=== PATIENT | male | born 1960 | race Caucasian/White ===

== ENCOUNTER → 2022-01-20 | Outpatient (CLI) | payer MEDICARE, OTHER ==
--- NOTE | 2022-01-20 13:07 | XR ---
EXAMINATION TYPE: XR skull limited DATE OF EXAM: 01/20/2022 COMPARISON: NONE HISTORY: 61-year-old male Z1 8.10, retained metal fragments. TECHNIQUE: 2 views FINDINGS: Dental amalgam is present. No retained metal otherwise seen within the orbits or along the calvarium, or the region of the temporal bones/mastoid processes. The left mastoid process is smaller, likely p ostsurgical. IMPRESSION: Dental amalgam but no additional retained metal identified along the skull.
--- NOTE | 2022-01-20 14:39 | MR ---
EXAMINATION TYPE: MR knee LT wo con DATE OF EXAM: 01/20/2022 COMPARISON: Outside left knee x-ray the eighth 05/09/2021 HISTORY: Left outer knee pain, painful kneecap, and locking TECHNIQUE: Multiplanar, multisequence imaging of the left knee is performed without IV contrast. FINDINGS: MEDIAL MENISCUS: Anterior and posterior horns are intact without tear. LATERAL MENISCUS: Anterior and posterior horns are intact without tear. CRUCIATE LIGAMENTS: The anterior and posterior cruciate ligaments are intact and unremarkable. COLLATERAL LIGAMENTS: The medial collateral ligament and lateral collateral ligament complex are inta ct and unremarkable. EXTENSOR MECHANISM: Visualized quadriceps and patellar tendons are intact. EFFUSION: No significant suprapatellar joint effusion. POPLITEAL CYST: No popliteal/pizarro cyst. TRICOMPARTMENT SPACES: Moderate narrowing patellofemoral compartment. No significant spurring is seen . CARTILAGE: Focal chondromalacia patella with cartilaginous loss along posterior patellar pole. Full-t hickness cleft loss sagittal image 16 is noted. BONE MARROW SIGNAL: Focus of heterogeneous increased T2 signal posterior patellar pole axial image 25 with areas of heterogeneous increased signal throughout the remainder of the patella. OTHER: No additional significant abnormality is appreciated. IMPRESSION: Patellofemoral joint arthropathy as detailed above. No meniscal or ligamentous tear is se en.
== END | disposition home or self-care (01) ==
LOC: RADMRIMAIN 12:02
PROVIDERS: ATTEND Orthopaedic Surgery
DX: Z18.10 Retained metal fragments, unspecified (principal); M22.42 Chondromalacia patellae, left knee
CPT/HCPCS: 70250

== ENCOUNTER → 2022-04-13 | Outpatient (CLI) | payer OTHER ==
[2022-04-13 18:17] LABS: Basophils # (A) 0.03 X 10*3/uL (0.00-0.10); Basophils % (A) 0.3 %; Eosinophils # (A) 0.07 X 10*3/uL (0.04-0.35); Eosinophils % (A) 0.7 %; HCT 43.7 % (39.6-50.0); HGB 14.7 g/dL (13.0-17.0); Immature Grans, Automated 0.4 %; Lymphocytes # (A) 2.85 X 10*3/uL (0.90-5.00); Lymphocytes % (A) 28.4 %; MCH 30.9 pg (27.0-32.0); MCHC 33.6 g/dL (32.0-37.0); MCV 91.8 fL (80.0-97.0); Monocytes # (A) 0.68 X 10*3/uL (0.20-1.00); Monocytes % (A) 6.8 %; NRBC Per 100 WBC 0 /100 WBCS (0.0-0.0); Neutrophils # (A) 6.38 X 10*3/uL (1.80-7.70); Neutrophils % (A) 63.4 %; Platelet Count 282 X 10*3/uL (140-440); RBC 4.76 X 10*6/uL (4.40-5.60); RDW 12.3 % (11.5-14.5); WBC 10.05 X 10*3/uL (4.50-10.00)
[2022-04-13 18:24] LABS: Carbon Dioxide 27.5 mmol/L (20.0-27.5); Potassium 4.6 mmol/L (3.5-5.5)
== END | disposition home or self-care (01) ==
LOC: LABPAT 11:50
PROVIDERS: ATTEND Orthopaedic Surgery
DX: Z01.818 Encounter for other preprocedural examination (principal); M23.92 Unspecified internal derangement of left knee
CPT/HCPCS: 80051; 85025; 93005

== ENCOUNTER 2022-04-14 10:56 | Day surgery (SDC) | payer OTHER ==
--- NOTE | 2022-04-14 03:58 | HP ---
HISTORY AND PHYSICAL DATE OF SURGERY: 04/14/2022. HISTORY OF PRESENT ILLNESS: Radames Pozo is a 61-year-old gentleman seen with progressive left knee pain. We discussed options. He elected to proceed with left knee arthroscopy. Consent was obtained. PAST MEDICAL HISTORY: Hyperlipidemia. PAST SURGICAL HISTORY: Foot surgery, mastoid surgery. MEDICATIONS: Daily medication is atorvastatin. ALLERGIES: Sulfa. SOCIAL HISTORY: Denies current tobacco use. PHYSICAL EVALUATION OF THE LEFT KNEE: Range of motion 0 to 130. Mild effusion. Tenderness, medial joint line. Positive medial Jaquan's. Patellofemoral compression. Distal neurovascular exam is intact. RADIOGRAPHS: Radiographs of his left knee revealed mild osteoarthritis. MRI of left knee revealed patellofemoral osteoarthritis. IMPRESSION: 1. Internal derangement of left knee with osteochondral tear. 2. Hyperlipidemia. PLAN: Left knee arthroscopy with chondroplasty and debridement. MMODL / IJN: [id number] /
[~2022-04-14 10:56] MED LIST: DEXAMETHASONE SOD PHOSPHATE 4 MG/ML 1 ML VIAL IV ONE; HYDROmorphone 0.5 MG/0.5 ML SYRINGE IVP PRN; LACTATED RINGERS 1,000 ML IV SCH; LIDOCAINE 1% (10MG/ML) FOR IV START INTRADERMA PRN; MIDAZOLAM 2 MG/2 ML VIAL IV PRN; ONDANSETRON 4 MG/2 ML VIAL IVP ONE
[2022-04-14] MEDS ORDERED: ONDANSETRON 4 MG/2 ML VIAL ONE (12:08)
[2022-04-14] MEDS ORDERED: ONDANSETRON 4 MG/2 ML VIAL IVP ONE (12:16)
[2022-04-14] MEDS ORDERED: DEXAMETHASONE SOD PHOSPHATE 4 MG/ML 1 ML VIAL IVP ONE (12:16)
[2022-04-14] MEDS ORDERED: BUPIVACAINE (PF) 0.25% 30 ML VIAL SQ ONE (13:16)
[2022-04-14] MEDS ORDERED: MIDAZOLAM 2 MG/2 ML VIAL ONE (13:17)
[2022-04-14] MEDS ORDERED: LIDOCAINE 2% INJ 20 MG/ML (2 ML VIAL) ONE (13:17)
[2022-04-14] MEDS ORDERED: HYDROmorphone (PF) 1 MG/ML ONE (13:17)
[2022-04-14] MEDS ORDERED: fentaNYL (PF) 50 MCG/ML 2 ML AMP ONE (13:17)
[2022-04-14] MEDS ORDERED: PROPOFOL 10 MG/ML 20 ML VIAL IV ONE (13:17)
[2022-04-14] MEDS ORDERED: LACTATED RINGERS 1,000 ML IV ONE (13:47)
[2022-04-14 15:02] VITALS: RESP 18
[2022-04-14 15:25] VITALS: BP 118/73; PULSE 71
--- NOTE | 2022-04-14 21:33 | OP ---
OPERATIVE REPORT PREOPERATIVE DIAGNOSIS: Internal derangement of left knee. POSTOPERATIVE DIAGNOSES: 1. Tear medial and lateral meniscus, right knee. 2. Grade 3 chondromalacia, patella, left knee. 3. Reactive synovitis of medial, lateral, and suprapatellar compartments, left knee. PROCEDURES: 1. Arthroscopic partial medial and lateral meniscectomy, left knee. 2. Arthroscopic chondroplasty, patella, left knee. 3. Arthroscopic partial synovectomy, medial, lateral, and suprapatellar compartments, left knee. ANESTHESIA: General. COMPLICATIONS: None. BLOOD LOSS: 7 mL. INDICATIONS FOR PROCEDURE: Radames Pozo is a 61-year-old gentleman seen with progressive left knee pain. We discussed options. He elected to proceed with arthroscopy. Consent was obtained. The patient was taken to the operative suite. He underwent general anesthetic by the Department of Anesthesia. He received preoperative IV antibiotics. The left lower extremity was placed in well-padded leg landa. Left lower extremity prepped and draped in the normal sterile orthopedic fashion. Lateral parapatellar incision was made. Trocar was inserted. Arthroscopy was initiated. Suprapatellar compartment revealed diffuse reactive synovitis. The patellofemoral joint appeared to articulate congruity with grade 3 chondral changes of the patella with osteochondral tears present. The scope was guided to the medial gutter. No the medial compartment. Medial parapatellar incision was made. Probe was inserted. Radial tear of posterior medial meniscus, thick reactive synovitis anteriorly. No significant chondromalacia. I performed a partial medial meniscectomy, getting down to a stable meniscal tissue. I performed a partial synovectomy. The residual meniscus was probed and found to be stable. There was good decompression of synovitis. Scope probe got into intercondylar notch, ACL identified and probed, stable. Scope got into lateral compartment. Lateral meniscus probed. Lateral meniscus revealed a radial tear in the posterior horn. There was thick reactive synovitis anteriorly. No significant chondromalacia was present. I performed a partial lateral meniscectomy, getting down to a stable meniscal tissue of the lateral meniscal tear, performed a partial synovectomy. The residual meniscus was probed and found to be stable. There was good resection of the tear. There was good decompression with synovitis. Scope probe guided into suprapatellar compartment. I introduced the motor shaver and debrided off some piecemeal fragments of meniscus I encountered. I performed a partial synovectomy. This shaver was removed. I now reintroduced the shaver and performed a chondroplasty of patella, getting down to stable osteochondral tissue. The shaver was again removed. The residual osteochondral surface of the patella appeared stable. There was good decompression with synovitis. I took 1 more look around the entire knee. No residual debris. Instruments now removed from the knee. The portal sites were approximated with Steri-Strips. The joint was infiltrated with 0.25% plain Marcaine, totaling 20 mL. Sterile dressings were applied, followed by TRIXIE peguero. The patient was awakened and transferred to bed in recovery in stable condition. MMODL / IJN: [id number] /
== END 2022-04-14 15:25 | disposition home or self-care (01) ==
LOC: OR 10:56
PROVIDERS: ATTEND Orthopaedic Surgery
DX: M23.301 Other meniscus derangements, unspecified lateral meniscus, left knee (principal); M23.304 Other meniscus derangements, unspecified medial meniscus, left knee; M17.12 Unilateral primary osteoarthritis, left knee; M22.42 Chondromalacia patellae, left knee; M65.862 Other synovitis and tenosynovitis, left lower leg; M25.562 Pain in left knee; E78.5 Hyperlipidemia, unspecified; M25.469 Effusion, unspecified knee; M54.9 Dorsalgia, unspecified; Z88.2 Allergy status to sulfonamides; Z86.69 Personal history of other diseases of the nervous system and sense organs; Z79.899 Other long term (current) drug therapy; Z98.890 Other specified postprocedural states
CPT/HCPCS: 29880; J2250; J1100; J0690; J2405; J3010; J1170 ×2; J2704; J2001

== ENCOUNTER → 2023-12-04 | Outpatient (CLI) | payer OTHER ==
--- NOTE | 2023-12-04 22:40 | MR ---
EXAMINATION TYPE: MR knee LT wo con DATE OF EXAM: 12/04/2023 COMPARISON: MRI left knee January 20, 2022. Outside left knee x-ray November 14, 2023 HISTORY: Left knee pain, locking, and swelling for years. History of remote injury. TECHNIQUE: Multiplanar, multisequence images of the knee is performed without IV contrast. FINDINGS: MEDIAL MENISCUS: Horizontal and irregular increased signal in the medial meniscus is more prominent f rom prior involving posterior horn extending towards central body. No definitive extension to articul ar surface. LATERAL MENISCUS: Anterior and posterior horns are intact without tear. CRUCIATE LIGAMENTS: The anterior and posterior cruciate ligaments are intact and unremarkable. COLLATERAL LIGAMENTS: The medial collateral ligament and lateral collateral ligament complex are inta ct. Fluid signal surrounds the medial collateral ligament. EXTENSOR MECHANISM: Visualized quadriceps and patellar tendons are intact. EFFUSION: Small to borderline moderate size suprapatellar joint effusion larger versus prior. POPLITEAL CYST: No popliteal/pizarro cyst. TRICOMPARTMENT SPACES: Moderate narrowing patellofemoral compartment redemonstrated. No significant s purring is seen. CARTILAGE: Chondromalacia patella with cartilaginous loss and posterior patellar pole including areas of full-thickness loss redemonstrated BONE MARROW SIGNAL: More prominent increased T2 signal throughout the patella. More prominent increas ed T2 signal involving the posterior central tibial plateau extending into the metaphysis. No corresp onding abnormality on x-ray. OTHER: No additional significant abnormality is appreciated. IMPRESSION: 1. New significant at least intrasubstance tear posterior horn of medial meniscus extending toward ce ntral body. 2. Mild MCL sprain injury. 3. Stable at least moderate patellofemoral joint arthropathy. 4. Increasing abnormal bone marrow edema in the posterior central tibial plateau extending towards th e metaphysis. Etiology uncertain?
== END | disposition home or self-care (01) ==
LOC: RADMRIMAIN 11:46
PROVIDERS: ATTEND Orthopaedic Surgery
DX: S83.242A Other tear of medial meniscus, current injury, left knee, initial encounter (principal); R60.9 Edema, unspecified; M12.862 Other specific arthropathies, not elsewhere classified, left knee; X58.XXXA Exposure to other specified factors, initial encounter